=== PATIENT | female | born 1975 | race Caucasian/White ===

== ENCOUNTER 2022-07-30 10:42 | Inpatient (IN) ==
[2022-07-30] MEDS ORDERED: ALBUTEROL 2.5 MG/3 ML NEB RESP TX STA ×2 (11:10→14:40)
[2022-07-30] MEDS ORDERED: ACETAMINOPHEN 500 MG TABLET PO STA (13:18)
[2022-07-30 13:58] LABS: Basophils % 0.4 % (0.0-0.8); Eosinophils # 0.4 10*3/uL (0.0-0.87); Eosinophils % 6.2 % (0.00-10.9); Hematocrit 42.2 VOL% (35.7-47.0); Hemoglobin 14.4 GM/DL (12.0-16.0); Immature Granulocytes % 0.3 %; Immature Granulocytes Absolute 0.02 #; Lymphocytes # 1.9 10*3/uL (1.4-4.0); Lymphocytes % 28.1 % (21.3-54.2); Mean Corpuscular HGB Conc 34.1 GM/DL (32-36); Mean Corpuscular Volume 89.8 FL (87-102); Mean Platelet Volume 11.8 FL (9.6-12.0); Monocytes # 0.3 10*3/uL (0.11-0.8); Monocytes % 4.8 % (1.7-12.7); Neutrophils % 60.2 % (38.7-73.9); Platelet Count 195 T/CUMM (130-400); Red Cell Distribution Width 13.3 % (9.3-17.3); White Blood Count 6.7 T/CUMM (4-12)
[2022-07-30 14:12] LABS: Alanine Aminotransferase 22 U/L (13-56); Albumin 3.5 G/DL (3.4-5.0); Alkaline Phosphatase 96 U/L (45-117); Aspartate Amino Transferase 14 U/L (0-37); Bilirubin,Total < 0.39 MG/DL (0.20-1.00); Blood Urea Nitrogen 15 MG/DL (7-18); Calcium 8.5 MG/DL (8.5-10.1); Carbon Dioxide 27 MMOL/L (21-32); Chloride 110 MMOL/L (98-107); Glucose 88 MG/DL (74-106); Osmolality,Calculated 282.1 MOS/KG (273-304); Potassium 3.6 MMOL/L (3.5-5.1); Sodium 142 MMOL/L (136-145); Total Protein 6.6 G/DL (6.4-8.2)
[2022-07-30] MEDS ORDERED: DEXAMETHASONE 4 MG/1 ML VIAL IV STA (14:41)
[2022-07-30] MEDS ORDERED: methylPREDNISolone SOD SUC 125 MG/2 ML VIAL IV STA (17:33)
[2022-07-30] MEDS ORDERED: LEVOFLOXACIN INJ 750 MG/150 ML PREMIX IV STA (18:23)
[2022-07-30] MEDS ORDERED: guaiFENesin/DM ER 600-30 MG TABLET PO PRN (19:12)
[2022-07-30] MEDS ORDERED: ONDANSETRON 4 MG/2 ML VIAL IV PRN (19:12)
[2022-07-30] MEDS ORDERED: ACETAMINOPHEN 325 MG TABLET PO PRN (19:12)
[2022-07-30] MEDS ORDERED: AZITHROMYCIN INJ 500 MG in SODIUM CHLORIDE 0.9% 250 ML IV SCH (19:30)
[2022-07-30] MEDS: DEXTROSE 5% NACL 0.9% 1,000 ML IV SCH (19:36)
[2022-07-30] MEDS: ENOXAPARIN 40 MG/0.4 ML SYRINGE SUBCUT SCH (23:48)
[2022-07-31] MEDS: ALBUTEROL 2.5 MG/3 ML NEB RESP TX SCH ×4 (01:07→18:52)
[2022-07-31 05:08] LABS: Hematocrit 39.3 VOL% (35.7-47.0); Hemoglobin 13.4 GM/DL (12.0-16.0); Immature Granulocytes % 0.5 %; Immature Granulocytes Absolute 0.03 #; Lymphocytes # 0.6 10*3/uL (1.4-4.0); Mean Corpuscular HGB Conc 34.1 GM/DL (32-36); Mean Corpuscular Volume 89.9 FL (87-102); Mean Platelet Volume 12.2 FL (9.6-12.0); Monocytes # 0.1 10*3/uL (0.11-0.8); Monocytes % 1.1 % (1.7-12.7); Neutrophils % 88.4 % (38.7-73.9); Platelet Count 190 T/CUMM (130-400); Red Blood Count 4.37 MC/CUMM (3.8-5.5); Red Cell Distribution Width 13.4 % (9.3-17.3); White Blood Count 6.4 T/CUMM (4-12)
[2022-07-31 05:55] LABS: Alanine Aminotransferase 21 U/L (13-56); Albumin 3.1 G/DL (3.4-5.0); Alkaline Phosphatase 86 U/L (45-117); Aspartate Amino Transferase 13 U/L (0-37); Bilirubin,Total < 0.39 MG/DL (0.20-1.00); Blood Urea Nitrogen 16 MG/DL (7-18); Calcium 9.1 MG/DL (8.5-10.1); Carbon Dioxide 22 MMOL/L (21-32); Chloride 114 MMOL/L (98-107); Cholesterol 262 MG/DL (50-200); Glucose 176 MG/DL (74-106); HDL Cholesterol 49 MG/DL (40-60); Osmolality,Calculated 287.1 MOS/KG (273-304); Risk Ratio 5.35; Sodium 142 MMOL/L (136-145); Thyroid Stimulating Hormone 0.316 uIU/ml (0.358-3.74); Total Protein 6.7 G/DL (6.4-8.2); Triglycerides 75 MG/DL (2-150)
[2022-07-31] MEDS: DEXTROSE 5% NACL 0.9% 1,000 ML IV SCH ×2 (08:00→21:15)
[2022-07-31] MEDS: FLUTICASONE 50 MCG NASAL SPRAY 16 GM BOTTLE BOTH NARES SCH ×2 (09:52→21:15)
[2022-07-31] MEDS: PANTOPRAZOLE 40 MG TABLET PO SCH (09:54)
[2022-07-31] MEDS: predniSONE 20 MG TABLET PO SCH (09:54)
[2022-07-31] MEDS: busPIRone 15 MG TABLET PO SCH ×2 (16:07→21:15)
[2022-07-31] MEDS: SERTRALINE 100 MG TABLET PO SCH (16:07)
[2022-07-31] MEDS: guaiFENesin/DM ER 600-30 MG TABLET PO SCH (21:15)
[2022-07-31] MEDS: LEVOFLOXACIN INJ 750 MG/150 ML PREMIX IV SCH (21:15)
[2022-07-31] MEDS: ENOXAPARIN 40 MG/0.4 ML SYRINGE SUBCUT SCH (21:15)
[2022-07-31] MEDS: ARIPiprazole 10 MG TABLET PO SCH (21:15)
[2022-07-31] MEDS: ATORVASTATIN 20 MG TABLET PO SCH (21:15)
[2022-08-01] MEDS: ALBUTEROL 2.5 MG/3 ML NEB RESP TX SCH ×4 (01:17→19:00)
[2022-08-01 05:23] LABS: Blood Urea Nitrogen 17 MG/DL (7-18); Calcium 8.3 MG/DL (8.5-10.1); Carbon Dioxide 25 MMOL/L (21-32); Chloride 114 MMOL/L (98-107); Glucose 101 MG/DL (74-106); Osmolality,Calculated 291.6 MOS/KG (273-304); Potassium 3.3 MMOL/L (3.5-5.1); Sodium 146 MMOL/L (136-145)
[2022-08-01] MEDS: CHOLECALCIFEROL 1,000 UNIT TABLET PO SCH (09:10)
[2022-08-01] MEDS: SERTRALINE 100 MG TABLET PO SCH (09:10)
[2022-08-01] MEDS: PANTOPRAZOLE 40 MG TABLET PO SCH (09:10)
[2022-08-01] MEDS: guaiFENesin/DM ER 600-30 MG TABLET PO SCH ×2 (09:10→21:56)
[2022-08-01] MEDS: busPIRone 15 MG TABLET PO SCH ×2 (09:11→21:56)
[2022-08-01] MEDS: predniSONE 20 MG TABLET PO SCH (09:11)
[2022-08-01] MEDS: FLUTICASONE 50 MCG NASAL SPRAY 16 GM BOTTLE BOTH NARES SCH ×2 (09:12→21:57)
[2022-08-01] MEDS ORDERED: POTASSIUM CHLORIDE 20 MEQ TABLET PO ONE (13:00)
[2022-08-01] MEDS: LEVOFLOXACIN INJ 750 MG/150 ML PREMIX IV SCH (21:55)
[2022-08-01] MEDS: ATORVASTATIN 20 MG TABLET PO SCH (21:56)
[2022-08-01] MEDS: ENOXAPARIN 40 MG/0.4 ML SYRINGE SUBCUT SCH (21:56)
[2022-08-01] MEDS: ARIPiprazole 10 MG TABLET PO SCH (21:56)
[2022-08-02] MEDS: ALBUTEROL 2.5 MG/3 ML NEB RESP TX SCH ×2 (00:08→07:30)
[2022-08-02 05:00] LABS: Basophils % 0.2 % (0.0-0.8); Eosinophils % 0.2 % (0.00-10.9); Hematocrit 37.8 VOL% (35.7-47.0); Hemoglobin 12.8 GM/DL (12.0-16.0); Immature Granulocytes % 0.7 %; Immature Granulocytes Absolute 0.06 #; Lymphocytes # 2.6 10*3/uL (1.4-4.0); Lymphocytes % 29.5 % (21.3-54.2); Mean Corpuscular HGB Conc 33.9 GM/DL (32-36); Mean Platelet Volume 11.3 FL (9.6-12.0); Monocytes # 0.4 10*3/uL (0.11-0.8); Monocytes % 4.7 % (1.7-12.7); Neutrophils % 64.7 % (38.7-73.9); Platelet Count 180 T/CUMM (130-400); Red Cell Distribution Width 13.9 % (9.3-17.3); White Blood Count 8.7 T/CUMM (4-12)
[2022-08-02 05:16] LABS: Blood Urea Nitrogen 16 MG/DL (7-18); Calcium 8.6 MG/DL (8.5-10.1); Carbon Dioxide 27 MMOL/L (21-32); Chloride 108 MMOL/L (98-107); Glucose 94 MG/DL (74-106); Osmolality,Calculated 279.4 MOS/KG (273-304); Potassium 3.5 MMOL/L (3.5-5.1); Sodium 140 MMOL/L (136-145)
[2022-08-02] MEDS: guaiFENesin/DM ER 600-30 MG TABLET PO SCH (09:39)
[2022-08-02] MEDS: predniSONE 20 MG TABLET PO SCH (09:40)
[2022-08-02] MEDS: busPIRone 15 MG TABLET PO SCH (09:40)
[2022-08-02] MEDS: PANTOPRAZOLE 40 MG TABLET PO SCH (09:40)
[2022-08-02] MEDS: CHOLECALCIFEROL 1,000 UNIT TABLET PO SCH (09:40)
[2022-08-02] MEDS: SERTRALINE 100 MG TABLET PO SCH (09:40)
[2022-08-02 11:34] VITALS: BP 103/56
[2022-08-02] MEDS: FLUTICASONE 50 MCG NASAL SPRAY 16 GM BOTTLE BOTH NARES SCH (15:25)
[2022-08-03] MEDS ORDERED: LEVOFLOXACIN 500 MG TABLET PO SCH (09:00)
[2022-08-03 10:28] LABS: Mycoplasma pneumoniae Ab, IgG Positive (Negative); Mycoplasma pneumoniae Ab, IgM Reactive (Negative)
== END 2022-08-02 15:15 | disposition home or self-care (01) | DRG 194 ==
LOC: N.ED 10:42 → N.5E 19:23
PROVIDERS: ADMIT Hospitalist; ATTEND Hospitalist